=== PATIENT | male | born 1945 | race Caucasian/White ===

== ENCOUNTER → 2017-08-14 | Outpatient (CLI) | payer MEDICARE, BC ==
[~2017-08-14] VITALS: Ht 186.7 cm; Wt 122.5 kg
[~2017-08-14] MED LIST: ADIPEX-P37.5 MG; AMITRIPTYLINE150 MG PO; ASPIRIN E.C. 8181 MG PO; CALCIUM600 M1 PO; CELEBREX PO; COZAAR100 MG PO; EPA FISH OIL1000 MG PO; FERROUS SULFAT324 MG PO; FISH OIL PO; FLAX PO; FLEXERIL 1010 MG/TAB; FLEXERIL 1010 MG/TAB PO; GLUCOSAMINE, CH1 TAB PO; HCTZ 25MG25 MG PO; HYDROCODONE/APAP; LIPITOR20 MG PO; MULTIPLE VITAMI1 CAP PO; OMEGA-3 1000 MG1 CAP PO; PHENDIMETRAZIN105 MG PO; PHENERGAN 25 TA25 MG PO; PHENTERMINE37.5 M1 PO; ROBAXIN 75750 MG/TAB PO; STOOL SOFTENER100 M2 PO; TOPAKAX PO; ULTRACET TABL1 UDTAB PO; VERAPAMIL HCL180 M1 PO; VERAPAMIL180 MG/TAB PO; VITAMIN C BUFF500 MG PO; ZOFRAN 4MG T4 MG/TAB PO; [UNRECOGNIZED DRUG - OTHER] PO; iron PO
[2017-08-14 10:11] VITALS: BP 148/76; PULSE 88
== END ==
LOC: LIGHT 08:59
DX: I10 Essential (primary) hypertension (principal); E78.5 Hyperlipidemia, unspecified; E66.9 Obesity, unspecified; Z68.35 Body mass index [BMI] 35.0-35.9, adult; Z71.3 Dietary counseling and surveillance; G43.909 Migraine, unspecified, not intractable, without status migrainosus
CPT/HCPCS: G0463

== ENCOUNTER → 2017-08-25 | Outpatient (CLI) | payer MEDICARE, BC | LOC: LIGHT 12:54 | DX: Z01.89 Encounter for other specified special examinations (principal) ==

== ENCOUNTER → 2017-09-11 | Outpatient (CLI) | payer MEDICARE, BC ==
[~2017-09-11] VITALS: Ht 179.1 cm; Wt 121.3 kg
[2017-09-11 13:22] VITALS: BP 130/78; PULSE 84
== END ==
LOC: LIGHT 09:47
DX: I10 Essential (primary) hypertension (principal); E78.5 Hyperlipidemia, unspecified; E66.9 Obesity, unspecified; Z68.37 Body mass index [BMI] 37.0-37.9, adult; Z71.3 Dietary counseling and surveillance; G43.909 Migraine, unspecified, not intractable, without status migrainosus
CPT/HCPCS: G0463

== ENCOUNTER → 2017-11-06 | Outpatient (CLI) | payer MEDICARE, BC ==
[~2017-11-06] VITALS: Ht 179.1 cm; Wt 120.4 kg
[2017-11-06 10:00] VITALS: BP 140/68; PULSE 88
== END ==
LOC: LIGHT 10-09 13:09
DX: I10 Essential (primary) hypertension (principal); E78.5 Hyperlipidemia, unspecified; E66.9 Obesity, unspecified; Z68.37 Body mass index [BMI] 37.0-37.9, adult; Z71.3 Dietary counseling and surveillance; G43.909 Migraine, unspecified, not intractable, without status migrainosus
CPT/HCPCS: G0463

== ENCOUNTER 2017-11-10 10:45 | Outpatient (RCR) | payer MEDICARE, BC | END 2017-12-07 | LOC: WSPT | DX: M47.816 Spondylosis without myelopathy or radiculopathy, lumbar region (principal) | CPT/HCPCS: G8978-GP; G8979-GP ==

== ENCOUNTER → 2017-12-18 | Outpatient (CLI) | payer MEDICARE, BC ==
[~2017-12-18] VITALS: Ht 179.1 cm; Wt 119.3 kg
[2017-12-18 10:33] VITALS: BP 128/60; PULSE 84
== END ==
LOC: LIGHT 10:09
DX: I10 Essential (primary) hypertension (principal); E78.5 Hyperlipidemia, unspecified; E66.9 Obesity, unspecified; Z68.37 Body mass index [BMI] 37.0-37.9, adult; Z71.3 Dietary counseling and surveillance; G43.909 Migraine, unspecified, not intractable, without status migrainosus
CPT/HCPCS: G0463

== ENCOUNTER → 2018-01-29 | Outpatient (CLI) | payer MEDICARE, BC ==
[~2018-01-29] VITALS: Ht 179.1 cm; Wt 114.1 kg
[2018-01-29 09:45] VITALS: BP 118/70; PULSE 80
== END ==
LOC: LIGHT 09:36
DX: I10 Essential (primary) hypertension (principal); E78.5 Hyperlipidemia, unspecified; G43.909 Migraine, unspecified, not intractable, without status migrainosus; E66.9 Obesity, unspecified; Z68.35 Body mass index [BMI] 35.0-35.9, adult; Z71.3 Dietary counseling and surveillance
CPT/HCPCS: G0463

== ENCOUNTER → 2018-04-02 | Outpatient (CLI) | payer MEDICARE, BC ==
[~2018-04-02] VITALS: Ht 179.1 cm; Wt 112.7 kg
[2018-04-02 09:50] VITALS: BP 118/80; PULSE 72
== END ==
LOC: LIGHT 09:43
DX: I10 Essential (primary) hypertension (principal); E78.5 Hyperlipidemia, unspecified; G43.909 Migraine, unspecified, not intractable, without status migrainosus; E66.9 Obesity, unspecified; Z68.33 Body mass index [BMI] 33.0-33.9, adult; Z71.3 Dietary counseling and surveillance
CPT/HCPCS: G0463

== ENCOUNTER → 2018-06-25 | Outpatient (CLI) | payer MEDICARE, BC ==
[~2018-06-25] VITALS: Ht 179.1 cm; Wt 112.9 kg
== END ==
LOC: LIGHT 06-11 14:17
DX: I10 Essential (primary) hypertension (principal); E03.9 Hypothyroidism, unspecified; G43.909 Migraine, unspecified, not intractable, without status migrainosus; E66.9 Obesity, unspecified; Z71.3 Dietary counseling and surveillance
CPT/HCPCS: G0463

== ENCOUNTER → 2018-10-01 | Outpatient (CLI) | payer MEDICARE, BC ==
[~2018-10-01] VITALS: Ht 179.1 cm; Wt 115.2 kg
[2018-10-01 09:54] VITALS: BP 120/76; PULSE 64
== END ==
LOC: LIGHT 08-20 15:18
DX: I10 Essential (primary) hypertension (principal); E78.5 Hyperlipidemia, unspecified; G43.909 Migraine, unspecified, not intractable, without status migrainosus; E66.9 Obesity, unspecified; Z68.35 Body mass index [BMI] 35.0-35.9, adult; Z71.3 Dietary counseling and surveillance
CPT/HCPCS: G0463

== ENCOUNTER → 2018-11-19 | Outpatient (CLI) | payer MEDICARE, BC ==
[~2018-11-19] VITALS: Ht 179.1 cm; Wt 117.9 kg
[2018-11-19 09:11] VITALS: BP 140/80; PULSE 96
== END ==
LOC: LIGHT 08:44
DX: I10 Essential (primary) hypertension (principal); E78.5 Hyperlipidemia, unspecified; G43.909 Migraine, unspecified, not intractable, without status migrainosus; E66.9 Obesity, unspecified; Z68.35 Body mass index [BMI] 35.0-35.9, adult; Z71.3 Dietary counseling and surveillance
CPT/HCPCS: G0463

== ENCOUNTER → 2018-12-31 | Outpatient (CLI) | payer MEDICARE, BC ==
[~2018-12-31] VITALS: Ht 179.1 cm; Wt 117.7 kg
[2018-12-31 09:07] VITALS: BP 106/68; PULSE 72
== END ==
LOC: LIGHT 08:50
DX: I10 Essential (primary) hypertension (principal); E78.5 Hyperlipidemia, unspecified; G43.909 Migraine, unspecified, not intractable, without status migrainosus; E66.9 Obesity, unspecified; Z68.36 Body mass index [BMI] 36.0-36.9, adult; Z71.3 Dietary counseling and surveillance
CPT/HCPCS: G0463

== ENCOUNTER → 2019-04-15 | Outpatient (CLI) | payer MEDICARE, BC ==
[~2019-04-15] VITALS: Ht 179.1 cm; Wt 117.7 kg
[2019-04-15 14:00] VITALS: BP 120/74; PULSE 80
== END ==
LOC: LIGHT 02-25 10:09
DX: I10 Essential (primary) hypertension (principal); E78.5 Hyperlipidemia, unspecified; G43.909 Migraine, unspecified, not intractable, without status migrainosus; E66.9 Obesity, unspecified; Z68.36 Body mass index [BMI] 36.0-36.9, adult; Z71.3 Dietary counseling and surveillance
CPT/HCPCS: G0463

== ENCOUNTER → 2019-05-27 | Outpatient (CLI) | payer MEDICARE, BC ==
[~2019-05-27] VITALS: Ht 179.1 cm; Wt 114.1 kg
[2019-05-27 09:55] VITALS: BP 132/86; PULSE 76
== END ==
LOC: LIGHT 09:34
DX: I10 Essential (primary) hypertension (principal); E78.5 Hyperlipidemia, unspecified; G43.709 Chronic migraine without aura, not intractable, without status migrainosus; E66.9 Obesity, unspecified; Z68.35 Body mass index [BMI] 35.0-35.9, adult; Z71.3 Dietary counseling and surveillance
CPT/HCPCS: G0463